=== PATIENT | female | born 1995 | race Caucasian/White ===

== ENCOUNTER → 2017-03-29 | Outpatient (REF) | payer OTHER ==
[2017-03-29 13:11] LABS: MEAN CORPUSCULAR HEMOGLOBIN 28.9 pg (27.0-33.0); MEAN CORPUSCULAR HGB CONC 33.5 g/dl (32.0-36.5); MEAN CORPUSCULAR VOLUME 86.1 fl (80.0-96.0); PLATELET COUNT, AUTOMATED 260 10^3/uL (150-450); RED CELL DISTRIBUTION WIDTH 12.1 % (11.5-14.5)
[2017-03-29 14:10] LABS: HCG, SERUM QUANTITATIVE 31320 MIU/ML
[2017-04-02 12:00] LABS: WHITE BLOOD COUNT 8.2 10^3/uL (4.0-10.0)
== END ==
LOC: M LAB REF 12:55
PROVIDERS: ATTEND Advanced Practice Midwife
DX: O36.80X0 Pregnancy with inconclusive fetal viability, not applicable or unspecified (principal); Z3A.00 Weeks of gestation of pregnancy not specified

== ENCOUNTER → 2017-05-03 | Outpatient (REF) | payer MEDICAID | LOC: M LAB REF 13:24 | DX: Z34.01 Encounter for supervision of normal first pregnancy, first trimester (principal); Z3A.11 11 weeks gestation of pregnancy; R30.0 Dysuria ==

== ENCOUNTER → 2017-05-24 | Outpatient (REF) | payer MEDICAID | LOC: M LAB REF 13:12 | DX: Z34.01 Encounter for supervision of normal first pregnancy, first trimester (principal) ==

== ENCOUNTER 2017-08-10 10:11 | Emergency (ER) | payer OTHER, MEDICAID ==
[2017-08-10] MEDS: NS 1,000 ML IV (10:52)
[2017-08-10] MEDS: METOCLOPRAMIDE INJ 10MG/2ML VIAL (J2765) IV (10:52)
[2017-08-10 10:59] LABS: BASO % 0.2 % (0.0-1.0); EOS % 0.1 % (0.0-3.0); HEMATOCRIT 31.4 % (36.0-47.0); HEMOGLOBIN 10.8 g/dl (12.0-15.5); IMMATURE GRANULOCYTE % 1.2 % (0-3.0); LYMPH # 1.4 10^3/uL (1.5-6.5); MEAN CORPUSCULAR HEMOGLOBIN 29.9 pg (27.0-33.0); MEAN CORPUSCULAR HGB CONC 34.4 g/dl (32.0-36.5); MONO # 1.5 10^3/uL (0.0-0.8); MONO % 11.5 % (0.0-5.0); NEUTROPHILS # 9.9 10^3/uL (1.8-7.7); PLATELET COUNT, AUTOMATED 220 10^3/uL (150-450); RED BLOOD COUNT 3.61 10^6/uL (4.00-5.40); RED CELL DISTRIBUTION WIDTH 11.8 % (11.5-14.5)
[2017-08-10 11:03] LABS: AMORPHOUS SEDIMENT RFX SMALL (NEGATIVE); KETONE, URINE AUTO RFX NEGATIVE (NEGATIVE); MUCUS, URINE RFX SMALL (NEGATIVE); NITRITE, URINE AUTO RFX NEGATIVE (NEGATIVE); RBC, URINE AUTO RFX 5 /HPF (0-3); SPECIFIC GRAVITY UR AUTO RFX 1.011 (1.002-1.035); SQUAM EPITHELIAL CELL UR AURFX 3 /HPF (0-6); WBC, URINE AUTO RFX 6 /HPF (0-3)
[2017-08-10 11:12] LABS: LEUKOCYTE ESTERASE UR AUTO RFX TRACE (NEGATIVE)
[2017-08-10 11:26] LABS: ALBUMIN 3.1 GM/DL (3.2-5.2); ALBUMIN/GLOBULIN RATIO 0.67 (1.00-1.93); ALKALINE PHOSPHATASE 109 U/L (45-117); ALT/SGPT 22 U/L (12-78); ANION GAP 7 MEQ/L (8-16); AST/SGOT 19 U/L (7-37); BILIRUBIN,TOTAL 0.8 MG/DL (0.2-1.0); BLOOD UREA NITROGEN 7 MG/DL (7-18); CALCIUM LEVEL 8.4 MG/DL (8.5-10.1); CARBON DIOXIDE LEVEL 25 MEQ/L (21-32); CHLORIDE LEVEL 104 MEQ/L (98-107); CREATININE FOR GFR 0.59 MG/DL (0.55-1.30); GLUCOSE, FASTING 79 MG/DL (70-100); POTASSIUM SERUM 3.5 MEQ/L (3.5-5.1); SODIUM LEVEL 136 MEQ/L (136-145); TOTAL PROTEIN 7.7 GM/DL (6.4-8.2)
[2017-08-10] MEDS: ACETAMINOPHEN TAB 650MG DOSE (2X325MG) PO (12:56)
[2017-08-10] MEDS: NITROFURANTOIN (MACROBID) 100 MG CAP PO (12:56)
== END 2017-08-10 12:58 | disposition home or self-care (01) ==
LOC: M ED 10:11
DX: O23.42 Unspecified infection of urinary tract in pregnancy, second trimester (principal); O26.892 Other specified pregnancy related conditions, second trimester; M54.5 Low back pain; O21.9 Vomiting of pregnancy, unspecified; Z3A.26 26 weeks gestation of pregnancy
CPT/HCPCS: J2765

== ENCOUNTER → 2017-08-23 | Outpatient (CLI) | payer OTHER ==
[2017-08-23 13:25] LABS: HEMATOCRIT 31.2 % (36.0-47.0); HEMOGLOBIN 10.4 g/dl (12.0-15.5); MEAN CORPUSCULAR HGB CONC 33.3 g/dl (32.0-36.5); MEAN CORPUSCULAR VOLUME 86.9 fl (80.0-96.0); PLATELET COUNT, AUTOMATED 323 10^3/uL (150-450); RED BLOOD COUNT 3.59 10^6/uL (4.00-5.40); RED CELL DISTRIBUTION WIDTH 11.6 % (11.5-14.5); WHITE BLOOD COUNT 11.8 10^3/uL (4.0-10.0)
[2017-08-23 13:37] LABS: GLUCOSE CHALLENGE TEST 1 HOUR 84 MG/DL (LESS THAN 140)
== END ==
LOC: M LAB 11:37
DX: Z34.82 Encounter for supervision of other normal pregnancy, second trimester (principal)
CPT/HCPCS: 82950

== ENCOUNTER 2017-09-01 22:49 | Emergency (ER) | payer OTHER ==
[2017-09-01 23:31] LABS: KETONE, URINE AUTO RFX NEGATIVE (NEGATIVE); LEUKOCYTE ESTERASE UR AUTO RFX 2+ (NEGATIVE); MUCUS, URINE RFX SMALL (NEGATIVE); NITRITE, URINE AUTO RFX NEGATIVE (NEGATIVE); RBC, URINE AUTO RFX 2 /HPF (0-3); SPECIFIC GRAVITY UR AUTO RFX 1.003 (1.002-1.035); SQUAM EPITHELIAL CELL UR AURFX 1 /HPF (0-6); WBC, URINE AUTO RFX 10 /HPF (0-3)
[2017-09-02] MEDS: CEPHALEXIN 500 MG CAP PO (01:28)
== END 2017-09-02 01:31 | disposition home or self-care (01) ==
LOC: M ED 22:49
DX: Z04.71 Encounter for examination and observation following alleged adult physical abuse (principal); O23.43 Unspecified infection of urinary tract in pregnancy, third trimester; Z3A.29 29 weeks gestation of pregnancy; Z79.899 Other long term (current) drug therapy; Z79.2 Long term (current) use of antibiotics
CPT/HCPCS: 76815

== ENCOUNTER 2017-10-01 18:56 | Emergency (ER) | payer OTHER | END 2017-10-01 19:55 | disposition admitted as inpatient to this hospital (09) | LOC: M ED 18:56 | DX: O26.893 Other specified pregnancy related conditions, third trimester (principal); R10.9 Unspecified abdominal pain; R50.9 Fever, unspecified; R05 Cough; R11.2 Nausea with vomiting, unspecified; Z3A.34 34 weeks gestation of pregnancy; Z87.440 Personal history of urinary (tract) infections | CPT/HCPCS: 99282 ==

== ENCOUNTER 2017-10-01 20:00 | Inpatient (IN) | payer OTHER ==
[2017-10-01] MEDS: LR 1,000 ML IV ×2 (20:30)
[2017-10-01 21:09] LABS: BASO % 0.1 % (0.0-1.0); EOS % 0.1 % (0.0-3.0); HEMATOCRIT 30.9 % (36.0-47.0); HEMOGLOBIN 10.3 g/dl (12.0-15.5); IMMATURE GRANULOCYTE % 1.5 % (0-3.0); LYMPH # 1.4 10^3/uL (1.5-6.5); LYMPH % 8.4 % (24.0-44.0); MEAN CORPUSCULAR HEMOGLOBIN 26.6 pg (27.0-33.0); MEAN CORPUSCULAR HGB CONC 33.3 g/dl (32.0-36.5); MEAN CORPUSCULAR VOLUME 79.8 fl (80.0-96.0); MONO # 1.4 10^3/uL (0.0-0.8); MONO % 8.4 % (0.0-5.0); NEUTROPHILS # 13.3 10^3/uL (1.8-7.7); NEUTROPHILS % 81.5 % (36.0-66.0); PLATELET COUNT, AUTOMATED 388 10^3/uL (150-450); RED BLOOD COUNT 3.87 10^6/uL (4.00-5.40); RED CELL DISTRIBUTION WIDTH 12.4 % (11.5-14.5); WHITE BLOOD COUNT 16.4 10^3/uL (4.0-10.0)
[2017-10-01 21:14] LABS: APPEARANCE, URINE HAZY (CLEAR); BACTERIA, URINE AUTO 1+ (NEGATIVE); BILIRUBIN, URINE AUTO NEGATIVE (NEGATIVE); BLOOD, URINE BLOOD NEGATIVE (NEGATIVE); COLOR, URINE YELLOW (YELLOW); GLUCOSE, URINE (UA) AUTO NEGATIVE (NEGATIVE); KETONE, URINE AUTO NEGATIVE (NEGATIVE); LEUKOCYTE ESTERASE, URINE AUTO 3+ (NEGATIVE); NITRITE, URINE AUTO NEGATIVE (NEGATIVE); PROTEIN, URINE AUTO NEGATIVE (NEGATIVE); RBC, URINE AUTO 1 /HPF (0-3); SPECIFIC GRAVITY URINE AUTO 1.005 (1.002-1.035); SQUAMOUS EPITHELIAL CELL UR AU 2 /HPF (0-6); WBC, URINE AUTO 15 /HPF (0-3)
[2017-10-01 21:36] LABS: ALBUMIN 2.1 GM/DL (3.2-5.2); ALBUMIN/GLOBULIN RATIO 0.43 (1.00-1.93); ALKALINE PHOSPHATASE 223 U/L (45-117); ALT/SGPT 26 U/L (12-78); ANION GAP 11 MEQ/L (8-16); AST/SGOT 27 U/L (7-37); BILIRUBIN,TOTAL 0.8 MG/DL (0.2-1.0); BLOOD UREA NITROGEN 5 MG/DL (7-18); CALCIUM LEVEL 7.9 MG/DL (8.5-10.1); CARBON DIOXIDE LEVEL 23 MEQ/L (21-32); CHLORIDE LEVEL 100 MEQ/L (98-107); CREATININE FOR GFR 0.67 MG/DL (0.55-1.30); GLOMERULAR FILTRATION RATE > 60.0 (>60); GLUCOSE, FASTING 70 MG/DL (70-100); POTASSIUM SERUM 3.8 MEQ/L (3.5-5.1); SODIUM LEVEL 134 MEQ/L (136-145)
[2017-10-01] MEDS: ACETAMINOPHEN 500 MG TAB PO (22:55)
[2017-10-01] MEDS: cefTRIAXone SOD 1 GM in D5W MINI-BAG PLUS 50 ML IV (22:55)
[2017-10-01 23:10] LABS: INFLUENZA A AMPLIFICATION NEGATIVE (NEGATIVE); INFLUENZA B AMPLIFICATION NEGATIVE (NEGATIVE)
[2017-10-02] MEDS: LR 1,000 ML IV ×3 (04:30→20:30)
[2017-10-02] MEDS: TERBUTALINE SULFATE 1 MG/ML VIAL (J3105) SC (06:45)
[2017-10-02 07:09] LABS: BASO % 0.2 % (0.0-1.0); EOS % 0.1 % (0.0-3.0); HEMATOCRIT 30.6 % (36.0-47.0); IMMATURE GRANULOCYTE % 1.5 % (0-3.0); LYMPH # 1.4 10^3/uL (1.5-6.5); LYMPH % 7.7 % (24.0-44.0); MEAN CORPUSCULAR HEMOGLOBIN 26.3 pg (27.0-33.0); MEAN CORPUSCULAR HGB CONC 32.7 g/dl (32.0-36.5); MEAN CORPUSCULAR VOLUME 80.5 fl (80.0-96.0); MONO # 1.5 10^3/uL (0.0-0.8); MONO % 8.5 % (0.0-5.0); NEUTROPHILS # 14.5 10^3/uL (1.8-7.7); PLATELET COUNT, AUTOMATED 329 10^3/uL (150-450); RED CELL DISTRIBUTION WIDTH 12.4 % (11.5-14.5); WHITE BLOOD COUNT 17.6 10^3/uL (4.0-10.0)
[2017-10-02] MEDS: ONDANSETRON 4MG/2ML VIAL (J2405) IV (08:32)
[2017-10-02] MEDS: ACETAMINOPHEN 500 MG TAB PO ×2 (08:59→20:49)
[2017-10-02] MEDS: cefTRIAXone SOD 1 GM in D5W MINI-BAG PLUS 50 ML IV (10:10)
[2017-10-03 08:31] LABS: BASO % 0.3 % (0.0-1.0); EOS # 0.1 10^3/uL (0.0-0.50); EOS % 1.1 % (0.0-3.0); HEMATOCRIT 28.2 % (36.0-47.0); HEMOGLOBIN 9.2 g/dl (12.0-15.5); IMMATURE GRANULOCYTE % 1.5 % (0-3.0); LYMPH # 1.7 10^3/uL (1.5-6.5); LYMPH % 14.5 % (24.0-44.0); MEAN CORPUSCULAR HEMOGLOBIN 26.4 pg (27.0-33.0); MEAN CORPUSCULAR HGB CONC 32.6 g/dl (32.0-36.5); MEAN CORPUSCULAR VOLUME 80.8 fl (80.0-96.0); MONO # 0.7 10^3/uL (0.0-0.8); MONO % 5.5 % (0.0-5.0); NEUTROPHILS # 9.1 10^3/uL (1.8-7.7); NEUTROPHILS % 77.1 % (36.0-66.0); PLATELET COUNT, AUTOMATED 327 10^3/uL (150-450); RED BLOOD COUNT 3.49 10^6/uL (4.00-5.40); RED CELL DISTRIBUTION WIDTH 12.6 % (11.5-14.5); WHITE BLOOD COUNT 11.8 10^3/uL (4.0-10.0)
[2017-10-03 09:14] LABS: CONTROL LINE MONO INT CTR LINE PRESENT; MONO SCRN NEGATIVE (NEGATIVE)
[2017-10-03] MEDS: LR 1,000 ML IV ×2 (10:11→17:42)
[2017-10-03] MEDS: cefTRIAXone SOD 1 GM in D5W MINI-BAG PLUS 50 ML IV (10:11)
[2017-10-04 07:37] LABS: BASO % 0.1 % (0.0-1.0); EOS # 0.1 10^3/uL (0.0-0.50); EOS % 1.2 % (0.0-3.0); HEMATOCRIT 27.3 % (36.0-47.0); HEMOGLOBIN 8.8 g/dl (12.0-15.5); IMMATURE GRANULOCYTE % 1.9 % (0-3.0); LYMPH % 20.4 % (24.0-44.0); MEAN CORPUSCULAR HEMOGLOBIN 25.8 pg (27.0-33.0); MEAN CORPUSCULAR HGB CONC 32.2 g/dl (32.0-36.5); MEAN CORPUSCULAR VOLUME 80.1 fl (80.0-96.0); MONO # 0.6 10^3/uL (0.0-0.8); MONO % 6.5 % (0.0-5.0); NEUTROPHILS # 6.7 10^3/uL (1.8-7.7); NEUTROPHILS % 69.9 % (36.0-66.0); PLATELET COUNT, AUTOMATED 332 10^3/uL (150-450); RED BLOOD COUNT 3.41 10^6/uL (4.00-5.40); RED CELL DISTRIBUTION WIDTH 12.6 % (11.5-14.5); WHITE BLOOD COUNT 9.6 10^3/uL (4.0-10.0)
[2017-10-04 07:55] LABS: ANION GAP 7 MEQ/L (8-16); BLOOD UREA NITROGEN 5 MG/DL (7-18); CALCIUM LEVEL 7.9 MG/DL (8.5-10.1); CARBON DIOXIDE LEVEL 27 MEQ/L (21-32); CHLORIDE LEVEL 110 MEQ/L (98-107); CREATININE FOR GFR 0.45 MG/DL (0.55-1.30); GLOMERULAR FILTRATION RATE > 60.0 (>60); GLUCOSE, FASTING 77 MG/DL (70-100); POTASSIUM SERUM 3.9 MEQ/L (3.5-5.1); SODIUM LEVEL 144 MEQ/L (136-145)
[2017-10-04] MEDS: ERYTHROMYCIN 250 MG TABLET PO (08:22)
[2017-10-04] MEDS: LR 1,000 ML IV (08:23)
== END 2017-10-04 11:01 | disposition home or self-care (01) | DRG 566 ==
LOC: M LDO 20:00 → M LDI 10-03 08:07
DX: O99.513 Diseases of the respiratory system complicating pregnancy, third trimester (principal); B95.7 Other staphylococcus as the cause of diseases classified elsewhere; Z87.440 Personal history of urinary (tract) infections; Z3A.33 33 weeks gestation of pregnancy; J06.9 Acute upper respiratory infection, unspecified; O23.43 Unspecified infection of urinary tract in pregnancy, third trimester

== ENCOUNTER → 2017-10-24 | Outpatient (REF) | payer OTHER | LOC: M LAB REF 13:01 | DX: Z23 Encounter for immunization (principal) | CPT/HCPCS: 87081 ==

== ENCOUNTER 2017-11-15 19:59 | Outpatient (CLI) | payer OTHER | END 2017-11-15 22:50 | disposition home or self-care (01) | LOC: M LDO 19:59 | DX: O47.1 False labor at or after 37 completed weeks of gestation (principal); Z3A.39 39 weeks gestation of pregnancy | CPT/HCPCS: 59025 ==

== ENCOUNTER 2017-11-19 12:45 | Inpatient (IN) | payer OTHER ==
[2017-11-19 13:56] LABS: HEMATOCRIT 29.9 % (36.0-47.0); HEMOGLOBIN 9.6 g/dl (12.0-15.5); MEAN CORPUSCULAR HEMOGLOBIN 24.1 pg (27.0-33.0); MEAN CORPUSCULAR HGB CONC 32.1 g/dl (32.0-36.5); MEAN CORPUSCULAR VOLUME 75.1 fl (80.0-96.0); PLATELET COUNT, AUTOMATED 232 10^3/uL (150-450); RED BLOOD COUNT 3.98 10^6/uL (4.00-5.40); RED CELL DISTRIBUTION WIDTH 14.7 % (11.5-14.5); WHITE BLOOD COUNT 11.1 10^3/uL (4.0-10.0)
[2017-11-19 14:16] LABS: ALT/SGPT 16 U/L (12-78); AST/SGOT 21 U/L (7-37); BILIRUBIN,TOTAL 0.4 MG/DL (0.2-1.0); CREATININE FOR GFR 0.84 MG/DL (0.55-1.30); GLOMERULAR FILTRATION RATE > 60.0 (>60); LDH LACTATE DEHYDROGENASE 206 U/L (84-246); URIC ACID 6.4 MG/DL (2.6-6.0)
[2017-11-19] MEDS ORDERED: FENTANYL 2MCG/ML ROPIVACAINE 0.2% IN 0.9% NACL 200ML IVBAG As Ordered (14:26)
[2017-11-19] MEDS ORDERED: ePHEDrine SULFATE 25 MG/5 ML(5MG/ML) SYRINGE IV (15:30)
[2017-11-19] MEDS ORDERED: NALOXONE INJ 0.4 MG/1 ML VIAL (J2310) IV (15:30)
[2017-11-19] MEDS ORDERED: REFRIGERATOR IV KEYS XX (15:30)
[2017-11-19] MEDS: FENTANYL/ROPIVACAINE/NACL BAG 200 ML EPIDURAL (15:30)
[2017-11-19] MEDS ORDERED: EPIDURAL/PCA KEYS XX (15:30)
[2017-11-19] MEDS ORDERED: ONDANSETRON 4MG/2ML VIAL (J2405) IV (15:30)
[2017-11-19] MEDS ORDERED: EPIDURAL COMMENT XX (15:30)
[2017-11-19] MEDS ORDERED: diphenhydrAMINE INJ 50MG/ML VIAL (J1200) IV (15:30)
[2017-11-19] MEDS ORDERED: LACTATED RINGER'S 1000 ML IV (15:30)
[2017-11-19 18:09] LABS: TOTAL PROTEIN,RANDOM URINE 30.7 MG/DL (0.0-12.0)
[2017-11-19 18:09] LABS: CREATININE,RANDOM URINE 31.5 MG/DL
[2017-11-19] MEDS: ACETAMINOPHEN 500 MG TAB PO (21:52)
[2017-11-19] MEDS: OXYTOCIN DRIP 30 UNITS in APPROPRIATE DILUENT 1 EA IV (22:02)
[2017-11-20 00:20] LABS: HEMATOCRIT 30.3 % (36.0-47.0); HEMOGLOBIN 9.8 g/dl (12.0-15.5); MEAN CORPUSCULAR HEMOGLOBIN 24.4 pg (27.0-33.0); MEAN CORPUSCULAR HGB CONC 32.3 g/dl (32.0-36.5); MEAN CORPUSCULAR VOLUME 75.6 fl (80.0-96.0); PLATELET COUNT, AUTOMATED 198 10^3/uL (150-450); RED BLOOD COUNT 4.01 10^6/uL (4.00-5.40); WHITE BLOOD COUNT 15.3 10^3/uL (4.0-10.0)
[2017-11-20] MEDS: ceFAZolin SOD 1 GM in D5W MINI-BAG PLUS 50 ML IV (00:30)
[2017-11-20] MEDS: BICITRA 30ML SOLN UDC PO (00:30)
[2017-11-20] MEDS ORDERED: OXYTOCIN INJ 10 UNITS/ML VIAL (J2590) As Ordered ×6 (00:31→01:51)
[2017-11-20] MEDS ORDERED: LIDOCAINE 2% W/EPIN INJ 20ML **PRES FREE As Ordered (00:35)
[2017-11-20] MEDS ORDERED: MORPHINE PRES-FREE INJ 10 MG/10 ML VIAL (J2274) As Ordered (01:16)
[2017-11-20] MEDS ORDERED: ONDANSETRON 4MG/2ML VIAL (J2405) As Ordered (01:18)
[2017-11-20] MEDS ORDERED: dexameTHASONE 4 MG/ML 1ML VIAL (J1100) As Ordered (01:18)
[2017-11-20] MEDS ORDERED: KETOROLAC 60 MG/2 ML VIAL (J1885) As Ordered (01:18)
[2017-11-20 01:36] LABS: CORD GAS ABE A -6.7; CORD GAS HCO3 A 22.5 MEQ/L; CORD GAS PCO2 A 59.4 mmHg; CORD GAS PH A 7.197 UNITS; CORD GAS SBC A 17.7 MEQ/L; CORD GAS TCO2 A 24.4 MEQ/L
[2017-11-20 01:37] LABS: CORD GAS ABE V -5.7; CORD GAS HCO3 V 19.1 MEQ/L; CORD GAS O2 SAT V 55.5 %; CORD GAS PCO2 V 35.8 mmHg; CORD GAS PH V 7.345 UNITS; CORD GAS PO2 V 24.3 mmHg; CORD GAS SBC V 18.8 MEQ/L; CORD GAS TCO2 V 20.2 MEQ/L
[2017-11-20] MEDS ORDERED: NALBUPHINE HCL 10 MG/ML AMP (J2300) IV ×2 (01:40→02:15)
[2017-11-20] MEDS ORDERED: NALOXONE INJ 0.4 MG/1 ML VIAL (J2310) IV ×2 (01:40)
[2017-11-20] MEDS ORDERED: METOCLOPRAMIDE INJ 10MG/2ML VIAL (J2765) IV (01:40)
[2017-11-20] MEDS ORDERED: ONDANSETRON 4MG/2ML VIAL (J2405) IV ×2 (01:40→02:15)
[2017-11-20] MEDS: LR 1,000 ML IV ×3 (01:46→17:46)
[2017-11-20] MEDS ORDERED: fentaNYL 100 MCG/2 ML INJECTION (J3010) IV (02:15)
[2017-11-20] MEDS ORDERED: HYDROMORPHONE HCL 0.5 MG/ 0.5 ML SYRINGE (J1170 PER 1) IV (02:15)
[2017-11-20] MEDS ORDERED: MEPERIDINE INJ 25 MG/ML VIAL (J2175) IV (02:15)
[2017-11-20] MEDS ORDERED: PERCOCET 5MG/325MG TAB PO (02:15)
[2017-11-20] MEDS: PERCOCET 5MG/325MG TAB PO ×4 (04:59→22:35)
[2017-11-20 07:23] LABS: ALT/SGPT 12 U/L (12-78); AST/SGOT 20 U/L (7-37); BILIRUBIN,TOTAL 0.5 MG/DL (0.2-1.0); CREATININE FOR GFR 1.03 MG/DL (0.55-1.30); GLOMERULAR FILTRATION RATE > 60.0 (>60); LDH LACTATE DEHYDROGENASE 233 U/L (84-246); URIC ACID 6.1 MG/DL (2.6-6.0)
[2017-11-20] MEDS: RHOGAM 300 MCG (1500 IU) INJ (J2790) IM (07:27)
[2017-11-20] MEDS: MEASLES,MUMPS,RUBELLA VACCINE INJ (MMR-II) (90707) SC (07:27)
[2017-11-20] MEDS: IBUPROFEN 800 MG TAB PO ×2 (08:41→17:35)
[2017-11-20] MEDS: PRENATAL VITAMINS CHEWABLE TABLET PO (09:00)
[2017-11-21] MEDS: IBUPROFEN 800 MG TAB PO ×3 (01:45→17:49)
[2017-11-21] MEDS: PERCOCET 5MG/325MG TAB PO ×5 (02:35→22:01)
[2017-11-21 06:51] LABS: HEMATOCRIT 21.6 % (36.0-47.0); MEAN CORPUSCULAR HGB CONC 31.5 g/dl (32.0-36.5); MEAN CORPUSCULAR VOLUME 76.3 fl (80.0-96.0); PLATELET COUNT, AUTOMATED 179 10^3/uL (150-450); RED BLOOD COUNT 2.83 10^6/uL (4.00-5.40); RED CELL DISTRIBUTION WIDTH 15.3 % (11.5-14.5); WHITE BLOOD COUNT 13.8 10^3/uL (4.0-10.0)
[2017-11-21 07:07] LABS: HEMOGLOBIN 6.8 g/dl (12.0-15.5)
[2017-11-21] MEDS: PRENATAL VITAMINS CHEWABLE TABLET PO (08:36)
[2017-11-21] MEDS ORDERED: OXYTOCIN 30 UNITS IN 0.9% NaCl 500ML IV BAG (J2590) As Ordered (21:24)
[2017-11-22] MEDS: IBUPROFEN 800 MG TAB PO ×2 (01:08→08:06)
[2017-11-22] MEDS: PERCOCET 5MG/325MG TAB PO (05:38)
[2017-11-22 07:10] LABS: HEMATOCRIT 21.4 % (36.0-47.0); MEAN CORPUSCULAR HEMOGLOBIN 24.6 pg (27.0-33.0); MEAN CORPUSCULAR HGB CONC 32.2 g/dl (32.0-36.5); MEAN CORPUSCULAR VOLUME 76.2 fl (80.0-96.0); PLATELET COUNT, AUTOMATED 211 10^3/uL (150-450); RED BLOOD COUNT 2.81 10^6/uL (4.00-5.40); RED CELL DISTRIBUTION WIDTH 15.5 % (11.5-14.5); WHITE BLOOD COUNT 14.4 10^3/uL (4.0-10.0)
[2017-11-22 07:16] LABS: HEMOGLOBIN 6.9 g/dl (12.0-15.5)
[2017-11-22 07:17] LABS: ALT/SGPT 12 U/L (12-78); AST/SGOT 18 U/L (7-37); BILIRUBIN,TOTAL 0.3 MG/DL (0.2-1.0); CREATININE FOR GFR 0.68 MG/DL (0.55-1.30); GLOMERULAR FILTRATION RATE > 60.0 (>60); LDH LACTATE DEHYDROGENASE 197 U/L (84-246); URIC ACID 5.1 MG/DL (2.6-6.0)
[2017-11-22] MEDS: PRENATAL VITAMINS CHEWABLE TABLET PO (08:06)
== END 2017-11-22 10:05 | disposition home or self-care (01) | DRG 540 ==
LOC: M LDI 12:45 → M OBS 11-20 03:17
PROC: 10D00Z1 Extraction of Products of Conception, Low, Open Approach (ICD-10-PCS; principal; 2017-11-19 01:00)
DX: O14.94 Unspecified pre-eclampsia, complicating childbirth (principal); Z3A.39 39 weeks gestation of pregnancy; O99.02 Anemia complicating childbirth; D64.9 Anemia, unspecified; O62.0 Primary inadequate contractions; Z37.0 Single live birth

== ENCOUNTER 2018-01-05 12:51 | Emergency (ER) | payer OTHER ==
[2018-01-05 13:33] LABS: KETONE, URINE AUTO RFX NEGATIVE (NEGATIVE); LEUKOCYTE ESTERASE UR AUTO RFX 2+ (NEGATIVE); MUCUS, URINE RFX SMALL (NEGATIVE); NITRITE, URINE AUTO RFX POSITIVE (NEGATIVE); RBC, URINE AUTO RFX 7 /HPF (0-3); SPECIFIC GRAVITY UR AUTO RFX 1.013 (1.002-1.035); SQUAM EPITHELIAL CELL UR AURFX 1 /HPF (0-6); WBC, URINE AUTO RFX TNTC /HPF (0-3)
== END 2018-01-05 14:19 | disposition home or self-care (01) ==
LOC: M ED 12:51
DX: N39.0 Urinary tract infection, site not specified (principal)
CPT/HCPCS: 81001

== ENCOUNTER → 2018-07-31 | Outpatient (REF) | payer OTHER, MEDICAID ==
[~2018-07-31] MED LIST: CIPR-249 PO; ERYT-52 PO; FERR325T3 PO; FLOM0.4C39 PO; IBUP80TA PO; KEFL500C17 PO; MACR100C43 PO; MULTCAP8 PO; PERC5TAB12 PO; PERCOCET PO; PRENTAB9 PO; PYRI1TAB5 PO; REGL10TA6 PO
[2018-07-31 13:11] LABS: HCG, SERUM QUANTITATIVE 172916 MIU/ML
[2018-07-31 13:29] LABS: HEMATOCRIT 32.6 % (36.0-47.0); HEMOGLOBIN 9.7 g/dl (12.0-15.5); MEAN CORPUSCULAR HEMOGLOBIN 20.9 pg (27.0-33.0); MEAN CORPUSCULAR HGB CONC 29.8 g/dl (32.0-36.5); MEAN CORPUSCULAR VOLUME 70.3 fl (80.0-96.0); PLATELET COUNT, AUTOMATED 337 10^3/uL (150-450); RED BLOOD COUNT 4.64 10^6/uL (4.00-5.40); WHITE BLOOD COUNT 6.4 10^3/uL (4.0-10.0)
[2018-08-01 10:23] LABS: RUBELLA IgG QUALITATIVE IMMUNE (IMMUNE)
[2018-08-01 10:54] LABS: HIV 1&2 SCREEN CENTAUR NEGATIVE (NEGATIVE)
== END ==
LOC: M LAB REF 12:12
PROVIDERS: ATTEND Obstetrics & Gynecology
DX: Z32.01 Encounter for pregnancy test, result positive (principal); O36.80X0 Pregnancy with inconclusive fetal viability, not applicable or unspecified; Z3A.00 Weeks of gestation of pregnancy not specified

== ENCOUNTER 2018-09-07 20:00 | Emergency (ER) | payer MEDICAID, OTHER ==
[~2018-09-07] VITALS: Ht 154.9 cm; Wt 54.5 kg
[2018-09-07] MEDS ORDERED: MULTTAB20 PO (20:41)
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
[2018-09-07 23:50] VITALS: BP 94/56
--- NOTE | 2018-09-08 06:41 | ED PDOC ---
Post-Departure Follow-Up dr cho and lawrence gold faxed formal report of ob us for fu Ursula Myles MD Sep 08, 2018 06:41
== END 2018-09-07 23:55 | disposition home or self-care (01) ==
LOC: EEVIPCON 20:00 → M ED 20:00
DX: O26.892 Other specified pregnancy related conditions, second trimester (principal); R10.2 Pelvic and perineal pain; Y04.8XXA Assault by other bodily force, initial encounter; Y92.89 Other specified places as the place of occurrence of the external cause; Z3A.16 16 weeks gestation of pregnancy

== ENCOUNTER → 2018-12-09 | Outpatient (CLI) | payer OTHER ==
[~2018-12-09] MED LIST changes: +MULTTAB20 PO
[2018-12-09 14:34] LABS: HEMATOCRIT 31.1 % (36.0-47.0); HEMOGLOBIN 9.2 g/dl (12.0-15.5); MEAN CORPUSCULAR HEMOGLOBIN 20.9 pg (27.0-33.0); MEAN CORPUSCULAR HGB CONC 29.6 g/dl (32.0-36.5); MEAN CORPUSCULAR VOLUME 70.5 fl (80.0-96.0); PLATELET COUNT, AUTOMATED 326 10^3/uL (150-450); RED BLOOD COUNT 4.41 10^6/uL (4.00-5.40); WHITE BLOOD COUNT 12.2 10^3/uL (4.0-10.0)
== END ==
LOC: M LAB 12:26
PROVIDERS: ATTEND Nurse Practitioner Women's Health
DX: Z34.82 Encounter for supervision of other normal pregnancy, second trimester (principal); Z36.89 Encounter for other specified antenatal screening

== ENCOUNTER → 2018-12-11 | Outpatient (REF) | payer OTHER ==
[~2018-12-11] MED LIST changes: +GUMMCHW PO; +PEDI1TAB5 PO; +PRIL20TA2 PO; +RANI1TAB38 PO
[2018-12-19 00:06] LABS: HEMOGLOBIN A 98.4 % (96.4-98.8); HEMOGLOBIN A2 1.6 % (1.8-3.2); HGB SOLUBILITY Negative (Negative)
== END ==
LOC: M LAB REF 17:03
PROVIDERS: ATTEND Nurse Practitioner Women's Health
DX: Z34.83 Encounter for supervision of other normal pregnancy, third trimester (principal)

== ENCOUNTER → 2019-02-05 | Outpatient (REF) | payer OTHER ==
[~2019-02-05] MED LIST changes: -GUMMCHW PO; -PEDI1TAB5 PO; -PRIL20TA2 PO; -RANI1TAB38 PO
== END ==
LOC: M LAB REF 12:13
PROVIDERS: ATTEND Obstetrics & Gynecology
DX: Z34.83 Encounter for supervision of other normal pregnancy, third trimester (principal)

== ENCOUNTER 2019-02-24 04:57 | Inpatient (IN) | payer MEDICAID, OTHER ==
[2019-02-24] VITALS (7 sets, daily range): BP systolic 100–111; BP diastolic 56–78
[~2019-02-24] VITALS: Ht 152.4 cm; Wt 63.6 kg
[~2019-02-24 04:57] MED LIST changes: +GUMMCHW PO; +PEDI1TAB5 PO; +PRIL20TA2 PO
[2019-02-24] MEDS ORDERED: LR 1,000 ML IV SCH ×2 (05:24→11:45)
[2019-02-24] MEDS ORDERED: LACTATED RINGER'S 1000 ML IV STA (05:24)
[2019-02-24] MEDS ORDERED: RANI1TAB38 PO (05:28)
[2019-02-24] MEDS ORDERED: ceFAZolin SOD 2 GM in IV 1 EA IV ONE (05:30)
[2019-02-24] MEDS ORDERED: BICITRA 30ML SOLN UDC PO ONE (05:30)
[2019-02-24 05:42] LABS: HEMATOCRIT 30.5 % (36.0-47.0); HEMOGLOBIN 8.6 g/dl (12.0-15.5); MEAN CORPUSCULAR HEMOGLOBIN 18.7 pg (27.0-33.0); MEAN CORPUSCULAR HGB CONC 28.2 g/dl (32.0-36.5); MEAN CORPUSCULAR VOLUME 66.3 fl (80.0-96.0); PLATELET COUNT, AUTOMATED 298 10^3/uL (150-450); WHITE BLOOD COUNT 13.3 10^3/uL (4.0-10.0)
[2019-02-24] MEDS ORDERED: OXYTOCIN INJ 10 UNITS/ML VIAL (J2590) As Ordered ONE (07:22)
[2019-02-24] MEDS ORDERED: dexameTHASONE 4 MG/ML 1ML VIAL (J1100) As Ordered ONE (07:22)
[2019-02-24] MEDS ORDERED: fentaNYL 100 MCG/2 ML INJECTION (J3010) As Ordered ONE (07:23)
[2019-02-24] MEDS ORDERED: ONDANSETRON 4MG/2ML VIAL (J2405) As Ordered ONE ×2 (07:23→11:51)
[2019-02-24] MEDS ORDERED: MORPHINE PRES-FREE INJ 10 MG/10 ML VIAL (J2274) As Ordered ONE (07:23)
[2019-02-24] MEDS ORDERED: KETOROLAC 60 MG/2 ML VIAL (J1885) As Ordered ONE (07:24)
[2019-02-24] MEDS ORDERED: OXYTOCIN DRIP 30 UNITS in IV 1 EA IV SCH (10:02)
[2019-02-24] MEDS ORDERED: IBUPROFEN 600 MG TAB PO PRN (10:15)
[2019-02-24] MEDS ORDERED: MOM 30ML SUSPENSION UDC PO PRN (10:15)
[2019-02-24] MEDS ORDERED: RHOGAM 300 MCG (1500 IU) INJ (J2790) IM SCH (10:15)
[2019-02-24] MEDS ORDERED: ACETAMINOPHEN 500 MG TAB PO PRN (10:15)
[2019-02-24] MEDS ORDERED: PERCOCET 5MG/325MG TAB PO PRN (10:15)
[2019-02-24] MEDS ORDERED: MEASLES,MUMPS,RUBELLA VACCINE INJ (MMR-II) (90707) SC SCH (10:15)
[2019-02-24] MEDS ORDERED: ONDANSETRON 4MG/2ML VIAL (J2405) IV PRN ×2 (10:33→11:45)
[2019-02-24] MEDS ORDERED: NALBUPHINE HCL 10 MG/ML AMP (J2300) IV PRN (10:33)
[2019-02-24] MEDS ORDERED: diphenhydrAMINE INJ 50MG/ML VIAL (J1200) IV PRN (10:33)
[2019-02-24] MEDS ORDERED: METOCLOPRAMIDE INJ 10MG/2ML VIAL (J2765) IV PRN (10:33)
[2019-02-24] MEDS ORDERED: NALOXONE INJ 0.4 MG/1 ML VIAL (J2310) IV PRN ×2 (10:33)
[2019-02-24] MEDS ORDERED: ePHEDrine SULFATE 25 MG/5 ML(5MG/ML) SYRINGE As Ordered ONE (11:08)
[2019-02-24 11:15] LABS: CORD GAS ABE V -2.9; CORD GAS HCO3 V 22.1 MEQ/L; CORD GAS O2 SAT V 66.9 %; CORD GAS PCO2 V 39.3 mmHg; CORD GAS PH V 7.367 UNITS; CORD GAS PO2 V 26.9 mmHg; CORD GAS SBC V 21.2 MEQ/L; CORD GAS TCO2 V 23.3 MEQ/L
[2019-02-24 11:18] LABS: CORD GAS ABE A -2.1; CORD GAS HCO3 A 24.6 MEQ/L; CORD GAS O2 SAT A 25.9 %; CORD GAS PCO2 A 48.9 mmHg; CORD GAS PH A 7.32 UNITS; CORD GAS PO2 A 14.2 mmHg; CORD GAS SBC A 20.8 MEQ/L; CORD GAS TCO2 A 26.1 MEQ/L
[2019-02-24] MEDS ORDERED: fentaNYL 100 MCG/2 ML INJECTION (J3010) IV PRN (11:45)
[2019-02-24] MEDS ORDERED: KETOROLAC 30 MG/ML VIAL (J1885) IV PRN (11:45)
[2019-02-24] MEDS: DOCUSATE SODIUM 100 MG CAP PO SCH (20:35)
[2019-02-25] VITALS (12 sets, daily range): BP systolic 92–114; BP diastolic 54–60
[2019-02-25 06:48] LABS: HEMATOCRIT 23.9 % (36.0-47.0); MEAN CORPUSCULAR HEMOGLOBIN 18.3 pg (27.0-33.0); MEAN CORPUSCULAR HGB CONC 27.2 g/dl (32.0-36.5); MEAN CORPUSCULAR VOLUME 67.3 fl (80.0-96.0); PLATELET COUNT, AUTOMATED 264 10^3/uL (150-450); RED BLOOD COUNT 3.55 10^6/uL (4.00-5.40); WHITE BLOOD COUNT 17.2 10^3/uL (4.0-10.0)
[2019-02-25 06:57] LABS: HEMOGLOBIN 6.5 g/dl (12.0-15.5)
--- NOTE | 2019-02-25 07:38 | RO ---
DATE OF PROCEDURE: 02/24/2019 Xenia is a 23-year-old female 2, para 1-0-0-1 with history of prior section who is being admitted at term for elective repeat section. PREOPERATIVE DIAGNOSES: 1. Term for elective repeat section. 2. Prior section. POSTOPERATIVE DIAGNOSES 1. Term for elective repeat section. 2. Prior section. PROCEDURE: 1. Repeat section. 2. Revision of old scar. ANESTHESIA: Spinal. SURGEON: Dr. Joey Romo. LIQUOR BRIDGE OPERATOR HELPER: Dr. Ricci Sandoval COMPLICATIONS: None. ESTIMATED BLOOD LOSS: 500 mL. FINDINGS: Live female infant in occiput transverse position. 9 and 9, weight 7 pounds 5 ounces. Placenta removed manually. The bilateral tubes and ovaries are within normal limits. DESCRIPTION OF PROCEDURE: After obtaining informed consent the patient was taken to the operating room where spinal anesthetic was found to be adequate. She was then draped and prepped in the usual sterile fashion in the supine position. At this point, an elliptical incision was made over the old scar. With the help of Dr. Sandoval the old scar was removed. The incision was carried down to the fascia. Fascia was incised in midline fashion and carried through laterally. Superior aspect of the fascia then grasped with two Jamshid clamps, tented off and dissected off the rectus muscles sharply. The inferior aspect was dissected off in similar fashion. Rectus muscles midline fashion. Perineum identified. Perineal cavity entered bluntly. Superior and inferior dissection of the peritoneum was then done with good visualization of the bladder at this point a Mobius skin retractor was placed. A low-transverse uterine incision was made. was delivered in atraumatic fashion. Nose and mouth bulb suctioned. Cord doubly clamped and cut and was handed over to the waiting warmer. Cord blood and cord gas were sent. Placenta removed manually. Uterus cleared of all clot and debris and the uterine incision was then repaired in two separate layers of 0 Vicryl sutures. Pelvis copiously irrigated with normal saline and suctioned out. All superficial bleeders coagulated and the peritoneum was closed in a running fashion using #2-0 Vicryl. Fascia closed in two separate segment of 0 Vicryl sutures and the skin was then reapproximated in a subcuticular fashion using #3-0 Vicryl on a Myke. Steri-Strips placed. The patient tolerated procedure well. She was then transferred to recovery room in stable condition. [facility] Services thank you
[2019-02-25] MEDS: IBUPROFEN 800 MG TAB PO PRN ×2 (08:13→15:41)
[2019-02-25] MEDS: PRENATAL VITAMINS CHEWABLE TABLET PO SCH (10:19)
[2019-02-25] MEDS: DOCUSATE SODIUM 100 MG CAP PO SCH ×2 (10:19→21:53)
[2019-02-25 12:19] LABS: MEAN CORPUSCULAR HEMOGLOBIN 18.7 pg (27.0-33.0); MEAN CORPUSCULAR HGB CONC 27.8 g/dl (32.0-36.5); MEAN CORPUSCULAR VOLUME 67.3 fl (80.0-96.0); PLATELET COUNT, AUTOMATED 245 10^3/uL (150-450); RED BLOOD COUNT 3.42 10^6/uL (4.00-5.40); WHITE BLOOD COUNT 15.2 10^3/uL (4.0-10.0)
[2019-02-25 12:26] LABS: HEMOGLOBIN 6.4 g/dl (12.0-15.5)
[2019-02-26 06:04] VITALS: BP 106/58
[2019-02-26 07:22] LABS: HEMATOCRIT 26.9 % (36.0-47.0); MEAN CORPUSCULAR HGB CONC 29.7 g/dl (32.0-36.5); MEAN CORPUSCULAR VOLUME 70.6 fl (80.0-96.0); PLATELET COUNT, AUTOMATED 229 10^3/uL (150-450); RED BLOOD COUNT 3.81 10^6/uL (4.00-5.40); WHITE BLOOD COUNT 13.8 10^3/uL (4.0-10.0)
[2019-02-26] MEDS: PRENATAL VITAMINS CHEWABLE TABLET PO SCH (07:29)
[2019-02-26] MEDS: DOCUSATE SODIUM 100 MG CAP PO SCH (07:29)
[2019-02-26] MEDS: IBUPROFEN 800 MG TAB PO PRN (07:30)
[2019-02-26] MEDS ORDERED: PERCOCET PO (08:30)
[2019-02-26] MEDS ORDERED: IBUP80TA PO (08:30)
--- NOTE | 2019-03-10 21:35 | DSES ---
DATE OF ADMISSION: 02/24/2019 DATE OF DISCHARGE: 02/26/2019 FINAL DIAGNOSIS: 1. Term for elective repeat section. PROCEDURE PERFORMED DURING THIS ADMISSION: Repeat section and revision of old scar. CONDITION ON DISCHARGE: Stable. DISCHARGE INSTRUCTIONS: The patient is instructed to call if there is any severe bleeding, pain or temperature greater than 101. She is given a prescription for Motrin and Percocet as needed for pain. She is further instructed to call the office in followup in approximately two weeks for an incision check. BRIEF HISTORY: Xenia is a 23-year-old female, 2, para 1-0-0-1 with a history of prior section, who is being admitted for elective repeat section. She underwent the above-noted procedure, was then transferred to [facility] for postoperative care. Postoperatively, she did well. On postoperative day #1, her hemoglobin and hematocrit went down from 8.6 to 6.5. The patient did remain stable. We did speak to the patient; and at that point given her low hemoglobin and hematocrit, a decision was made to transfuse her 2 units of packed red blood cells. Her post transfusion hemoglobin and hematocrit the next day was 8/26.9. At this point, her exam was essentially unremarkable and we did decide to discharge the patient home to follow up in the office in approximately two weeks.
== END 2019-02-26 12:25 | disposition home or self-care (01) | DRG 540 ==
LOC: M LDI 04:57 → M OBS 12:40
PROVIDERS: ADMIT Obstetrics & Gynecology; ATTEND Obstetrics & Gynecology
PROC: 10D00Z1 Extraction of Products of Conception, Low, Open Approach (ICD-10-PCS; principal; 2019-02-24 09:30)
PROC: 30233N1 Transfusion of Nonautologous Red Blood Cells into Peripheral Vein, Percutaneous Approach (ICD-10-PCS; 2019-02-25)
DX: O34.211 Maternal care for low transverse scar from previous cesarean delivery (principal); Z37.0 Single live birth; Z3A.38 38 weeks gestation of pregnancy

== ENCOUNTER → 2019-03-19 | Outpatient (REF) | payer OTHER ==
[~2019-03-19] MED LIST changes: +RANI1TAB38 PO
== END ==
LOC: M SFHCCLAY 15:10
PROVIDERS: ATTEND Nurse Practitioner Family
DX: N39.0 Urinary tract infection, site not specified (principal)

== ENCOUNTER → 2019-10-23 | Outpatient (CLI) | payer OTHER | LOC: M LABSMTC 13:50 | PROVIDERS: ATTEND Family Medicine | DX: Z11.59 Encounter for screening for other viral diseases (principal) | CPT/HCPCS: C9803; U0003 ==

== ENCOUNTER → 2020-03-24 | Outpatient (REF) | payer OTHER ==
[2020-03-24 17:46] LABS: HEMOGLOBIN 10.7 g/dl (12.0-15.5); MEAN CORPUSCULAR HEMOGLOBIN 23.4 pg (27.0-33.0); MEAN CORPUSCULAR HGB CONC 30.6 g/dl (32.0-36.5); MEAN CORPUSCULAR VOLUME 76.6 fl (80.0-96.0); PLATELET COUNT, AUTOMATED 313 10^3/uL (150-450); RED BLOOD COUNT 4.57 10^6/uL (4.00-5.40); WHITE BLOOD COUNT 8.1 10^3/uL (4.0-10.0)
[2020-03-24 20:29] LABS: HCG, SERUM QUANTITATIVE 134407 MIU/ML; HEPATITIS C VIRUS ABY INDEX 0.1 INDEX (<0.8); HIV 1&2 SCREEN CENTAUR NEGATIVE (NEGATIVE)
== END ==
LOC: M LAB REF 16:14
PROVIDERS: ATTEND Obstetrics & Gynecology
DX: Z32.01 Encounter for pregnancy test, result positive (principal)

== ENCOUNTER → 2020-03-28 | Outpatient (CLI) | payer OTHER ==
--- NOTE | 2020-03-28 11:35 | REP ---
INDICATION: ENCOUNTER FOR PREG TEST RESULT POSITIVE COMPARISON: None TECHNIQUE: Transabdominal obstetrical ultrasound with color Doppler evaluation. FINDINGS: Single live early intrauterine is appreciated. Gestational sac with yolk sac and pole identified. [place]-rump length of 31 mm corresponds to 10 weeks 0 days gestational age with estimated date of delivery 10/24/2020. heart rate equals 169 beats per minute. 12 x 8 x 17 mm cystic structure posterior to the gestational sac is identified. Differential diagnosis may include small subchorionic hemorrhage or possible placental caba. IMPRESSION: 1. Single live early intrauterine at 10 weeks 0 days gestational age. Complete anatomical assessment should be performed and 19-20 weeks. 2. Cystic structure as described above may represent small subchorionic hemorrhage or early forming placental venous Caba. <Electronically signed by Pancho Palma > 03/28/20 [id number]
== END ==
LOC: M WHC 10:25
PROVIDERS: ATTEND Obstetrics & Gynecology
DX: Z32.01 Encounter for pregnancy test, result positive (principal); Z3A.10 10 weeks gestation of pregnancy

== ENCOUNTER → 2020-06-08 | Outpatient (CLI) | payer OTHER ==
--- NOTE | 2020-06-09 16:23 | REP ---
INDICATION: ANATOMY. COMPARISON: 03/28/2020. TECHNIQUE: Real-time sonographic evaluation of the gravid uterus performed. FINDINGS: Estimated gestational age is20 weeks 2 days, EDC 10/24/2020. Today's measurements indicate appropriate growth. Presentation: Breech Placenta posterior, grade 1, without evidence of placenta previa. heart rate is recorded at 143 beats per minute. Amniotic fluid is subjectively normal. Closed cervical length is measured at 3.1 cm. Biometry chart: BPD: 44 mm, 19 weeks 2 days, 25th percentile. HC: 177 mm, 20 weeks 1 days, 48th percentile AC: 155 mm, 20 weeks 5 days, 60th percentile Femur length: 34 mm, 20 weeks 5 days, 63rd percentile HC to AC ratio: 1.14, normal range 1.06-1.24. Estimated weight: 365g, 67th percentile. anatomy: Cranium: Grossly normal Lateral Ventricles/Choroid Plexus: Grossly normal Posterior Fossa/Cerebellum: Grossly normal Nose/lips/profile: Grossly normal Four chamber heart: Grossly normal Right ventricular outflow tract: Grossly normal Left ventricular outflow tract: Grossly normal Left-sided stomach: Grossly normal Kidneys: Grossly normal Bladder: Grossly normal Cord Insertion: Grossly normal 3 vessel cord: Grossly normal Spine: Grossly normal IMPRESSION: Viable single intrauterine gestation as above. <Electronically signed by Jamie Krishna > 06/09/20 [id number]
== END ==
LOC: M WHC 12:55
PROVIDERS: ATTEND Obstetrics & Gynecology
DX: Z36.89 Encounter for other specified antenatal screening (principal); Z3A.20 20 weeks gestation of pregnancy

== ENCOUNTER → 2020-07-21 | Outpatient (CLI) | payer OTHER ==
[2020-07-21 12:51] LABS: HEMATOCRIT 31.5 % (36.0-47.0); HEMOGLOBIN 9.2 g/dl (12.0-15.5); MEAN CORPUSCULAR HEMOGLOBIN 22.3 pg (27.0-33.0); MEAN CORPUSCULAR HGB CONC 29.2 g/dl (32.0-36.5); MEAN CORPUSCULAR VOLUME 76.3 fl (80.0-96.0); PLATELET COUNT, AUTOMATED 244 10^3/uL (150-450); RED BLOOD COUNT 4.13 10^6/uL (4.00-5.40); WHITE BLOOD COUNT 9.8 10^3/uL (4.0-10.0)
== END ==
LOC: M LAB 09:54
PROVIDERS: ATTEND Obstetrics & Gynecology
DX: Z34.81 Encounter for supervision of other normal pregnancy, first trimester (principal); Z36.89 Encounter for other specified antenatal screening

== ENCOUNTER → 2020-09-20 | Outpatient (REF) | payer OTHER | LOC: M LAB REF 16:24 | PROVIDERS: ATTEND Advanced Practice Midwife | DX: Z34.83 Encounter for supervision of other normal pregnancy, third trimester (principal) ==

== ENCOUNTER 2020-09-24 21:15 | Outpatient (CLI) | payer OTHER ==
[~2020-09-24] VITALS: Ht 152.4 cm; Wt 61.4 kg
[2020-09-24 21:32] VITALS: BP 113/75
[2020-09-24] MEDS ORDERED: FERR325T3 PO (21:44)
[2020-09-24] MEDS ORDERED: LR 1,000 ML IV ONE (22:05)
[2020-09-24 22:42] LABS: HEMATOCRIT 28.5 % (36.0-47.0); HEMOGLOBIN 8.4 g/dl (12.0-15.5); MEAN CORPUSCULAR HEMOGLOBIN 20.3 pg (27.0-33.0); MEAN CORPUSCULAR HGB CONC 29.5 g/dl (32.0-36.5); MEAN CORPUSCULAR VOLUME 68.8 fl (80.0-96.0); PLATELET COUNT, AUTOMATED 286 10^3/uL (150-450); RED BLOOD COUNT 4.14 10^6/uL (4.00-5.40); WHITE BLOOD COUNT 12.8 10^3/uL (4.0-10.0)
[2020-09-24 22:46] LABS: APPEARANCE, URINE HAZY (CLEAR); BACTERIA, URINE AUTO NEGATIVE (NEGATIVE); BILIRUBIN, URINE AUTO NEGATIVE (NEGATIVE); BLOOD, URINE BLOOD NEGATIVE (NEGATIVE); COLOR, URINE YELLOW (YELLOW); GLUCOSE, URINE (UA) AUTO NEGATIVE (NEGATIVE); KETONE, URINE AUTO NEGATIVE (NEGATIVE); LEUKOCYTE ESTERASE, URINE AUTO 3+ (NEGATIVE); MUCUS, URINE SMALL (NEGATIVE); NITRITE, URINE AUTO NEGATIVE (NEGATIVE); PROTEIN, URINE AUTO NEGATIVE (NEGATIVE); RBC, URINE AUTO 4 /HPF (0-3); SPECIFIC GRAVITY URINE AUTO 1.013 (1.002-1.035); SQUAMOUS EPITHELIAL CELL UR AU 2 /HPF (0-6); UROBILINOGEN, URINE AUTO 0.2 mg/dL (0.0-2.0); WBC, URINE AUTO 91 /HPF (0-3)
[2020-09-24] MEDS ORDERED: ceFAZolin 2 GM/D5W 50 ML IV BAG (J0690 PER 500MG) As Ordered ONE (23:08)
[2020-09-24] MEDS ORDERED: ceFAZolin SOD 2 GM in IV 1 EA IV ONE (23:10)
[2020-09-24] MEDS ORDERED: CEPH500T PO (23:17)
== END 2020-09-25 00:22 | disposition home or self-care (01) ==
LOC: M LDO 21:15
PROVIDERS: ATTEND Obstetrics & Gynecology
DX: O26.893 Other specified pregnancy related conditions, third trimester (principal); R25.2 Cramp and spasm; Z3A.35 35 weeks gestation of pregnancy
CPT/HCPCS: 59025; 81001; 85027; 96374; J0690

== ENCOUNTER → 2020-10-08 | Outpatient (CLI) | payer OTHER ==
[~2020-10-08] MED LIST changes: +CEPH500T PO
== END ==
LOC: M LABSMTC 10:17
PROVIDERS: ATTEND Anesthesiology
DX: Z01.818 Encounter for other preprocedural examination (principal); Z11.52 Encounter for screening for COVID-19

== ENCOUNTER 2020-10-13 05:45 | Inpatient (IN) | payer OTHER ==
[~2020-10-13] VITALS: Ht 152.4 cm; Wt 62.0 kg
[2020-10-13] VITALS (8 sets, daily range): BP systolic 105–121; BP diastolic 55–85
[2020-10-13] MEDS ORDERED: LACTATED RINGER'S 1000 ML IV STA (05:48)
[2020-10-13] MEDS ORDERED: BICITRA 30ML SOLN UDC PO ONE (05:50)
[2020-10-13] MEDS ORDERED: ceFAZolin SOD 2 GM in IV 1 EA IV ONE (05:50)
[2020-10-13] MEDS ORDERED: LR 1,000 ML IV SCH (05:50)
[2020-10-13 06:44] LABS: HEMATOCRIT 30.1 % (36.0-47.0); HEMOGLOBIN 8.7 g/dl (12.0-15.5); MEAN CORPUSCULAR HEMOGLOBIN 19.6 pg (27.0-33.0); MEAN CORPUSCULAR HGB CONC 28.9 g/dl (32.0-36.5); MEAN CORPUSCULAR VOLUME 67.9 fl (80.0-96.0); PLATELET COUNT, AUTOMATED 274 10^3/uL (150-450); RED BLOOD COUNT 4.43 10^6/uL (4.00-5.40); WHITE BLOOD COUNT 10.9 10^3/uL (4.0-10.0)
[2020-10-13] MEDS ORDERED: OXYTOCIN DRIP 30 UNITS in IV 1 EA IV SCH ×6 (07:45)
[2020-10-13] MEDS ORDERED: RHOGAM 300 MCG (1500 IU) INJ (J2790) IM SCH ×3 (07:45)
[2020-10-13] MEDS ORDERED: PERCOCET 5MG/325MG TAB PO PRN ×3 (07:45)
[2020-10-13] MEDS ORDERED: KETOROLAC 30 MG/ML 1ML VIAL IV SCH ×2 (07:45)
[2020-10-13] MEDS ORDERED: SIMETHICONE 80MG CHEW TAB PO PRN ×3 (07:45)
[2020-10-13] MEDS ORDERED: MEASLES,MUMPS,RUBELLA VACCINE INJ (MMR-II) (90707) SC SCH ×3 (07:45)
[2020-10-13] MEDS ORDERED: MOM 30ML SUSPENSION UDC PO PRN ×3 (07:45)
[2020-10-13] MEDS ORDERED: OXYTOCIN INJ 10 UNITS/ML VIAL (J2590) As Ordered ONE (07:49)
[2020-10-13] MEDS ORDERED: ONDANSETRON 4MG/2ML VIAL As Ordered ONE ×2 (07:49→10:18)
[2020-10-13] MEDS ORDERED: KETOROLAC 60MG 2ML VIAL As Ordered ONE (07:49)
[2020-10-13] MEDS ORDERED: dexameTHASONE 4 MG/ML 1ML VIAL (J1100 PER 1MG) As Ordered ONE (07:49)
[2020-10-13] MEDS ORDERED: fentaNYL 100 MCG/2 ML INJECTION (J3010) As Ordered ONE (07:49)
[2020-10-13] MEDS ORDERED: MORPHINE PRES-FREE INJ 10 MG/10 ML VIAL (J2274) As Ordered ONE (07:49)
[2020-10-13] MEDS ORDERED: ONDANSETRON 4MG/2ML VIAL IV PRN ×2 (08:43→10:15)
[2020-10-13] MEDS ORDERED: diphenhydrAMINE 50MG/ML VIAL (J1200) IV PRN (08:43)
[2020-10-13] MEDS ORDERED: NALBUPHINE HCL 10 MG/ML AMP (J2300) IV PRN (08:43)
[2020-10-13] MEDS ORDERED: NALOXONE INJ 0.4MG/1ML VIAL (J2310 PER 1MG) IV PRN ×2 (08:43)
[2020-10-13] MEDS ORDERED: ePHEDrine SULFATE 25 MG/5 ML(5MG/ML) SYRINGE As Ordered ONE (08:51)
[2020-10-13] MEDS ORDERED: PHENYLephrine 500MCG 5ML (100MCG/ML) SYRINGE As Ordered ONE (08:51)
[2020-10-13] MEDS: DOCUSATE SODIUM 100MG CAPSULE PO SCH ×2 (09:00→21:21)
[2020-10-13] MEDS ORDERED: PRENATAL VITAMINS CHEWABLE TABLET PO SCH ×2 (09:00)
[2020-10-13] MEDS ORDERED: DOCUSATE SODIUM 100MG CAPSULE PO SCH ×2 (09:00)
[2020-10-13] MEDS: PRENATAL VITAMINS CHEWABLE TABLET PO SCH (09:00)
[2020-10-13 09:44] LABS: CORD GAS ABE V -4.9; CORD GAS HCO3 V 19.8 MEQ/L; CORD GAS O2 SAT V 89.6 %; CORD GAS PCO2 V 36.1 mmHg; CORD GAS PH V 7.357 UNITS; CORD GAS PO2 V 44.5 mmHg; CORD GAS SBC V 20.3 MEQ/L; CORD GAS TCO2 V 20.9 MEQ/L
[2020-10-13 09:46] LABS: CORD GAS ABE A -2.9; CORD GAS HCO3 A 24.1 MEQ/L; CORD GAS O2 SAT A 32.9 %; CORD GAS PCO2 A 50.4 mmHg; CORD GAS PH A 7.298 UNITS; CORD GAS PO2 A 17.3 mmHg; CORD GAS SBC A 20.5 MEQ/L; CORD GAS TCO2 A 25.7 MEQ/L
[2020-10-13] MEDS ORDERED: OXYTOCIN 30 UNITS IN 0.9% NaCl 500ML IV BAG (J2590) As Ordered ONE (10:13)
[2020-10-13] MEDS ORDERED: HYDROMORPHONE HCL 0.5 MG/ 0.5 ML SYRINGE (J1170 PER 1) IV PRN (10:15)
[2020-10-13] MEDS ORDERED: oxyCODONE 5MG TAB PO PRN (10:15)
[2020-10-13] MEDS ORDERED: fentaNYL 100 MCG/2 ML INJECTION (J3010) IV PRN (10:15)
[2020-10-13] MEDS: METOCLOPRAMIDE INJ 10MG/2ML VIAL (J2765 PER 1) IV PRN ×2 (11:20→17:50)
[2020-10-13] MEDS: KETOROLAC 30 MG/ML 1ML VIAL IV SCH ×2 (15:57→21:22)
[2020-10-14 02:00] VITALS: BP 108/59
[2020-10-14] MEDS: KETOROLAC 30 MG/ML 1ML VIAL IV SCH (03:57)
[2020-10-14 05:37] VITALS: BP 92/53
[2020-10-14 05:50] LABS: HEMATOCRIT 23.9 % (36.0-47.0); MEAN CORPUSCULAR HEMOGLOBIN 19.4 pg (27.0-33.0); MEAN CORPUSCULAR HGB CONC 28.5 g/dl (32.0-36.5); MEAN CORPUSCULAR VOLUME 68.3 fl (80.0-96.0); PLATELET COUNT, AUTOMATED 215 10^3/uL (150-450); WHITE BLOOD COUNT 14.3 10^3/uL (4.0-10.0)
[2020-10-14 05:52] LABS: HEMOGLOBIN 6.8 g/dl (12.0-15.5)
--- NOTE | 2020-10-14 07:34 | IPNPDOC ---
Progress Note Date of Service: Oct 14, 2020 Progress Note SUBJECT: No complaints. does not feel dizzy OBJECTIVE: VITAL SIGNS: Within normal limits, afebrile. Alert and oriented times three. Breath sounds clear to auscultation. Heart rate: Regular rate and rhythm, no murmurs, rubs or gallops. Abdomen: Fundus firm at U-2. Soft, NTTP. [Minimal] lochia. Hb=6.8 g/dl ASSESSMENT:POD#1 PLAN: routine post op care discussed low Hemoglobin No intervention at this time VS, I&O, 24H, Fishbone Vital Signs/I&O Vital Signs Date Time Temp Pulse Resp B/P (MAP) Pulse Ox O2 Delivery O2 Flow Rate FiO2 10/14/20 05:37 97.9 89 18 92/53 (66) 99 Room Air I&O- Last 24 Hours up to 6 AM 10/14/20 05:59 Intake Total 900 ml Output Total 2850 ml Balance -1950 ml Laboratory Data 24H LABS Laboratory Tests 2 10/13/20 08:59: Cord Arterial Blood pH 7.298, Cord Arterial Blood PCO2 50.4, Cord Arterial Blood PO2 17.3, Cord Arterial Blood HCO3 24.1, Cord Arterial Blood Total CO2 25.7, Cord Arterial Blood Base Excess -2.9, Cord Arterial Base Excess (Standard 20.5, Cord Arterial Bld Oxygen Saturation 32.9, Cord Venous Blood pH 7.357, Cord Venous Blood PCO2 36.1, Cord Venous Blood PO2 44.5, Cord Venous Blood HCO3 19.8, Cord Venous Blood Total CO2 20.9, Cord Venous Base Excess (Actual) -4.9, Cord Venous Base Excess (Standard) 20.3, Cord Venous Blood Oxygen Saturation 89.6 10/14/20 05:18: Nucleated Red Blood Cells % (auto) 0.0 CBC/BMP Laboratory Tests 10/14/20 05:18 JILL GALLARDO MD Oct 14, 2020 07:34
[2020-10-14] MEDS ORDERED: BOOSTRIX/ADACEL VACCINE (DIPHTH/PERTUSS/ACELL/TETANUS) 0.5ML SYR IM ONE (09:00)
[2020-10-14] MEDS: PRENATAL VITAMINS CHEWABLE TABLET PO SCH (09:33)
[2020-10-14] MEDS: DOCUSATE SODIUM 100MG CAPSULE PO SCH ×2 (09:33→20:09)
[2020-10-14] MEDS ORDERED: IBUPROFEN 800 MG TAB PO SCH ×2 (09:45)
[2020-10-14 09:54] VITALS: BP 98/56
[2020-10-14] MEDS: IBUPROFEN 800 MG TAB PO SCH ×2 (11:23→20:09)
[2020-10-14 14:00] VITALS: BP 109/56
[2020-10-14 17:57] VITALS: BP 111/71
[2020-10-14] MEDS: FIORICET TAB PO PRN (18:47)
[2020-10-14 21:59] VITALS: BP 104/56
[2020-10-15 02:07] VITALS: BP 106/56
[2020-10-15] MEDS: IBUPROFEN 800 MG TAB PO SCH ×2 (04:42→12:14)
[2020-10-15 06:11] VITALS: BP 110/66
[2020-10-15] MEDS: DOCUSATE SODIUM 100MG CAPSULE PO SCH (09:49)
[2020-10-15] MEDS: PRENATAL VITAMINS CHEWABLE TABLET PO SCH (09:49)
[2020-10-15] MEDS: FIORICET TAB PO PRN (09:50)
[2020-10-15] MEDS ORDERED: PERCOCET PO (09:58)
[2020-10-15] MEDS ORDERED: IBUP80TA PO (09:58)
--- NOTE | 2020-10-15 10:13 | DS.PDOC ---
Discharge Summary General Date of Admission Oct 13, 2020 at 05:45 Date of Discharge 10/15/20 Attending Physician: Joey Romo DO Discharge Summary PROCEDURES PERFORMED DURING STAY: Repeat section. ADMITTING DIAGNOSES: 1. Term history of 3 prior section. DISCHARGE DIAGNOSES: 1. Same as well as above. COMPLICATIONS/CHIEF COMPLAINT: Term ,History Prior Section X3. HISTORY OF PRESENT ILLNESS: Mrs. Cates presented for scheduled section. She underwent a repeat section, productive of live born male . Patient did well postoperatively by postoperative day #2 had met all discharge criteria is as discharged home in stable condition DISCHARGE MEDICATIONS: Please see below. ALLERGIES: Please see below. PHYSICAL EXAMINATION ON DISCHARGE: VITAL SIGNS: Please see below. GENERAL: No distress HEENT: WNL ABDOMINAL EXAMINATION: Fundus firm. Dressing intact EXTREMITIES: Equal strength and motion SKIN: Intact NEUROLOGICAL EXAMINATION: Grossly intact PSYCHIATRIC EXAMINATION: Appropriate ACTIVITY: As tolerated. DIET: Regular DISCHARGE PLAN: Home DISPOSITION: Home. DISCHARGE INSTRUCTIONS: 1. Follow-up in 2 weeks. 2. Remain on pelvic rest for 6 weeks. 3. Reports severe pain heavy vaginal bleeding or fevers.. DISCHARGE CONDITION: Stable. Vital Signs/I&Os Vital Signs Date Time Temp Pulse Resp B/P (MAP) Pulse Ox O2 Delivery O2 Flow Rate FiO2 10/15/20 09:50 18 10/15/20 06:11 99.8 77 110/66 (81) 99 10/14/20 16:53 Room Air Discharge Medications Scheduled Ferrous Sulfate (Ferrous Sulfate) 325 Mg Tablet.dr, 325 MG PO DAILY, (Reported) Multivitamin (Gummi Bear Multivitamin) 1 Each Tab.chew, 1 CHW PO DAILY, (Reported) Scheduled PRN Ibuprofen (Ibuprofen) 800 Mg Tablet, 800 MG PO Q8HP PRN for PAIN LEVEL 3-5 Oxycodone/Acetaminophen (Oxycodone-Acetaminophen 5-325) 1 Each Tablet, 1 TAB PO Q4H PRN for MILD/MODERATE PAIN (PS 1-7) Allergies Coded Allergies: No Known Allergies (Unverified , 10/13/20) AMBREEN HOBSON MD. Oct 15, 2020 10:13
[2020-10-15 11:13] LABS: HEMATOCRIT 27.7 % (36.0-47.0); HEMOGLOBIN 7.9 g/dl (12.0-15.5); MEAN CORPUSCULAR HEMOGLOBIN 19.7 pg (27.0-33.0); MEAN CORPUSCULAR HGB CONC 28.5 g/dl (32.0-36.5); MEAN CORPUSCULAR VOLUME 68.9 fl (80.0-96.0); PLATELET COUNT, AUTOMATED 274 10^3/uL (150-450); RED BLOOD COUNT 4.02 10^6/uL (4.00-5.40); WHITE BLOOD COUNT 15.4 10^3/uL (4.0-10.0)
== END 2020-10-15 12:45 | disposition home or self-care (01) | DRG 540 ==
LOC: M LDI 05:45 → M OBS 10:45
PROVIDERS: ADMIT Obstetrics & Gynecology; ATTEND Obstetrics & Gynecology
PROC: 10D00Z1 Extraction of Products of Conception, Low, Open Approach (ICD-10-PCS; principal; 2020-10-13 07:30)
DX: O34.211 Maternal care for low transverse scar from previous cesarean delivery (principal); Z3A.38 38 weeks gestation of pregnancy; Z37.0 Single live birth

== ENCOUNTER → 2022-02-20 | Outpatient (REF) | payer OTHER, MEDICAID ==
[~2022-02-20] MED LIST changes: -ERYT-52 PO; +ERYT-88 PO
[2022-02-20 17:38] LABS: HEMATOCRIT 32.9 % (36.0-47.0); HEMOGLOBIN 9.8 g/dl (12.0-15.5); MEAN CORPUSCULAR HEMOGLOBIN 21.5 pg (27.0-33.0); MEAN CORPUSCULAR HGB CONC 29.8 g/dl (32.0-36.5); MEAN CORPUSCULAR VOLUME 72.1 fl (80.0-96.0); PLATELET COUNT, AUTOMATED 305 10^3/uL (150-450); RED BLOOD COUNT 4.56 10^6/uL (4.00-5.40); WHITE BLOOD COUNT 8.2 10^3/uL (4.0-10.0)
[2022-02-20 19:49] LABS: HEPATITIS B SURFACE ANTIGEN NEGATIVE (NEGATIVE)
[2022-02-21 14:43] LABS: HEPATITIS C VIRUS ABY INDEX 0.1 INDEX (<0.8)
[2022-02-21 14:44] LABS: HIV 1&2 SCREEN CENTAUR NEGATIVE (NEGATIVE)
== END ==
LOC: M LAB REF 17:14
PROVIDERS: ATTEND Obstetrics & Gynecology
DX: O36.80X0 Pregnancy with inconclusive fetal viability, not applicable or unspecified (principal)

== ENCOUNTER → 2022-04-26 | Outpatient (REF) | payer OTHER, MEDICAID | LOC: M LAB REF 16:16 | PROVIDERS: ATTEND Obstetrics & Gynecology | DX: Z34.82 Encounter for supervision of other normal pregnancy, second trimester (principal) ==

== ENCOUNTER 2022-05-09 10:28 | Inpatient (IN) | payer MEDICAID, OTHER ==
[~2022-05-09] VITALS: Ht 152.4 cm; Wt 52.3 kg
[2022-05-09 12:04] LABS: BASO % 0.2 % (0.0-1.0); EOS % 0.2 % (0.0-3.0); HEMATOCRIT 31.8 % (36.0-47.0); HEMOGLOBIN 9.6 g/dl (12.0-15.5); LYMPH # 1.5 10^3/uL (1.5-5.0); LYMPH % 11.1 % (24.0-44.0); MEAN CORPUSCULAR HEMOGLOBIN 21.8 pg (27.0-33.0); MEAN CORPUSCULAR HGB CONC 30.2 g/dl (32.0-36.5); MEAN CORPUSCULAR VOLUME 72.1 fl (80.0-96.0); MONO # 1.3 10^3/uL (0.0-0.8); MONO % 9.5 % (2.0-8.0); NEUTROPHILS # 10.4 10^3/uL (1.5-8.5); NEUTROPHILS % 77.9 % (36.0-66.0); PLATELET COUNT, AUTOMATED 305 10^3/uL (150-450); RED BLOOD COUNT 4.41 10^6/uL (4.00-5.40); WHITE BLOOD COUNT 13.3 10^3/uL (4.0-10.0)
[2022-05-09 12:46] LABS: LIPASE 35 U/L (12-53)
[2022-05-09 12:48] LABS: ALBUMIN 2.7 G/DL (3.2-5.2); ALKALINE PHOSPHATASE 104 U/L (46-116); ALT/SGPT 12 U/L (7.0-40); AST/SGOT 15 U/L (<34); BILIRUBIN,DIRECT 0.3 MG/DL (<0.4); BILIRUBIN,TOTAL 1.2 MG/DL (0.3-1.2); BLOOD UREA NITROGEN 8 MG/DL (9-23); CALCIUM LEVEL 8.2 MG/DL (8.5-10.1); CARBON DIOXIDE LEVEL 22 MMOL/L (20-31); CHLORIDE LEVEL 102 MMOL/L (98-107); CREATININE FOR GFR 0.56 MG/DL (0.55-1.30); GLOMERULAR FILTRATION RATE > 60.0 (>60); GLUCOSE, FASTING 92 MG/DL (60-100); POTASSIUM SERUM 3.7 MMOL/L (3.5-5.1); SODIUM LEVEL 133 MMOL/L (136-145)
[2022-05-09] MEDS ORDERED: NS 1,000 ML IV ONE (15:50)
[2022-05-09] MEDS ORDERED: cefTRIAXone SOD 1 GM in D5W MINI-BAG PLUS 50 ML IV ONE (15:50)
[2022-05-09 17:01] LABS: RSV AMPLIFICATION NEGATIVE (NEGATIVE)
[2022-05-09] MEDS ORDERED: LR 1,000 ML IV ONE (17:25)
[2022-05-09] MEDS ORDERED: ACETAMINOPHEN TAB 650MG DOSE (2X325MG) PO ONE (18:15)
[2022-05-09] MEDS: LR 1,000 ML IV SCH (18:27)
[2022-05-09] MEDS ORDERED: CLIN1GEL22 TOP (18:37)
[2022-05-09] MEDS ORDERED: HOME MED LIST COMPLETE! XX SCH (18:40)
[2022-05-09 20:30] VITALS: BP 90/47
[2022-05-09] MEDS ORDERED: PROMETHAZINE 25MG/ML 1ML VIAL IV ONE (20:50)
[2022-05-09] MEDS ORDERED: BUTORPHANOL 2 MG/ML 1ML VIAL IV ONE (20:50)
[2022-05-10] VITALS: BP 96/52
[2022-05-10] MEDS: LR 1,000 ML IV SCH ×2 (00:38→08:25)
[2022-05-10 08:00] VITALS: BP 89/52
[2022-05-10 08:39] LABS: HEMATOCRIT 25.4 % (36.0-47.0); HEMOGLOBIN 7.7 g/dl (12.0-15.5); MEAN CORPUSCULAR HEMOGLOBIN 21.6 pg (27.0-33.0); MEAN CORPUSCULAR HGB CONC 30.3 g/dl (32.0-36.5); MEAN CORPUSCULAR VOLUME 71.3 fl (80.0-96.0); PLATELET COUNT, AUTOMATED 261 10^3/uL (150-450); RED BLOOD COUNT 3.56 10^6/uL (4.00-5.40); WHITE BLOOD COUNT 10.6 10^3/uL (4.0-10.0)
[2022-05-10] MEDS ORDERED: ACETAMINOPHEN 500 MG TAB PO PRN (09:25)
[2022-05-10 12:00] VITALS: BP 96/50
[2022-05-10] MEDS ORDERED: NS 500 ML IV ONE (15:50)
[2022-05-10 16:00] VITALS: BP 89/50
[2022-05-10] MEDS ORDERED: cefTRIAXone SOD 2 GM in D5W MINI-BAG PLUS 50 ML IV SCH (16:00)
[2022-05-10] MEDS ORDERED: cefTRIAXone SOD 1 GM in D5W MINI-BAG PLUS 50 ML IV SCH (16:00)
[2022-05-10 16:04] LABS: BASO % 0.2 % (0.0-1.0); EOS # 0.1 10^3/uL (0.0-0.5); EOS % 0.7 % (0.0-3.0); LYMPH # 1.5 10^3/uL (1.5-5.0); MONO # 1.1 10^3/uL (0.0-0.8); MONO % 10.2 % (2.0-8.0); NEUTROPHILS # 7.7 10^3/uL (1.5-8.5); NEUTROPHILS % 74.2 % (36.0-66.0)
[2022-05-10] MEDS: NS 0.45% 1,000 ML IV SCH (17:46)
[2022-05-10 20:00] VITALS: BP 103/58
[2022-05-11] VITALS: BP 88/52
[2022-05-11] MEDS: NS 0.45% 1,000 ML IV SCH ×2 (01:12→09:03)
[2022-05-11 04:00] VITALS: BP 93/54
[2022-05-11 06:42] LABS: BASO % 0.2 % (0.0-1.0); EOS # 0.2 10^3/uL (0.0-0.5); EOS % 1.7 % (0.0-3.0); HEMATOCRIT 25.8 % (36.0-47.0); HEMOGLOBIN 7.6 g/dl (12.0-15.5); LYMPH # 2.2 10^3/uL (1.5-5.0); MEAN CORPUSCULAR HEMOGLOBIN 21.3 pg (27.0-33.0); MEAN CORPUSCULAR HGB CONC 29.5 g/dl (32.0-36.5); MEAN CORPUSCULAR VOLUME 72.5 fl (80.0-96.0); MONO # 0.8 10^3/uL (0.0-0.8); MONO % 8.8 % (2.0-8.0); NEUTROPHILS # 5.6 10^3/uL (1.5-8.5); NEUTROPHILS % 63.3 % (36.0-66.0); PLATELET COUNT, AUTOMATED 267 10^3/uL (150-450); RED BLOOD COUNT 3.56 10^6/uL (4.00-5.40); WHITE BLOOD COUNT 8.9 10^3/uL (4.0-10.0)
[2022-05-11 07:19] LABS: ALKALINE PHOSPHATASE 88 U/L (46-116); ALT/SGPT < 9 U/L (7.0-40); AST/SGOT 13 U/L (<34); BILIRUBIN,TOTAL 0.4 MG/DL (0.3-1.2); BLOOD UREA NITROGEN < 5 MG/DL (9-23); CALCIUM LEVEL 7.7 MG/DL (8.5-10.1); CARBON DIOXIDE LEVEL 21 MMOL/L (20-31); CHLORIDE LEVEL 109 MMOL/L (98-107); CREATININE FOR GFR 0.45 MG/DL (0.55-1.30); GLOMERULAR FILTRATION RATE > 60.0 (>60); GLUCOSE, FASTING 85 MG/DL (60-100); POTASSIUM SERUM 3.7 MMOL/L (3.5-5.1); SODIUM LEVEL 137 MMOL/L (136-145); TOTAL PROTEIN 5.5 G/DL (5.7-8.2)
[2022-05-11 09:00] VITALS: BP 91/54
[2022-05-11] MEDS ORDERED: CEPH500C PO ×2 (11:05→11:34)
== END 2022-05-11 11:40 | disposition home or self-care (01) | DRG 566 ==
LOC: M ED 10:28 → M ED INP 17:25 → ENRESERV 19:45 → M PED 20:00
PROVIDERS: ADMIT Advanced Practice Midwife; ATTEND Advanced Practice Midwife
DX: O23.02 Infections of kidney in pregnancy, second trimester (principal); O34.211 Maternal care for low transverse scar from previous cesarean delivery; B96.1 Klebsiella pneumoniae [K. pneumoniae] as the cause of diseases classified elsewhere; O99.012 Anemia complicating pregnancy, second trimester; D64.9 Anemia, unspecified; Z3A.18 18 weeks gestation of pregnancy; N10 Acute pyelonephritis

== ENCOUNTER → 2022-05-15 | Outpatient (CLI) | payer OTHER ==
[~2022-05-15] MED LIST changes: +CEPH500C PO; +CLIN1GEL22 TOP
== END ==
LOC: M WHC 09:17
PROVIDERS: ATTEND Obstetrics & Gynecology
DX: Z34.82 Encounter for supervision of other normal pregnancy, second trimester (principal); Z3A.20 20 weeks gestation of pregnancy

== ENCOUNTER → 2022-05-31 | Outpatient (REF) | payer OTHER, MEDICAID | LOC: M LAB REF 16:29 | PROVIDERS: ATTEND Obstetrics & Gynecology | DX: Z34.82 Encounter for supervision of other normal pregnancy, second trimester (principal); Z3A.00 Weeks of gestation of pregnancy not specified; B96.1 Klebsiella pneumoniae [K. pneumoniae] as the cause of diseases classified elsewhere ==

== ENCOUNTER → 2022-06-12 | Outpatient (CLI) | payer OTHER | LOC: M WHC 10:33 | PROVIDERS: ATTEND Obstetrics & Gynecology | DX: Z34.82 Encounter for supervision of other normal pregnancy, second trimester (principal) ==

== ENCOUNTER → 2022-06-16 | Outpatient (REF) | payer OTHER | LOC: M LAB REF 18:03 | PROVIDERS: ATTEND Student in an Organized Health Care Education/Training Program | DX: J02.9 Acute pharyngitis, unspecified (principal) ==

== ENCOUNTER → 2022-07-05 | Outpatient (CLI) | payer OTHER ==
[2022-07-05 15:25] LABS: HEMATOCRIT 30.2 % (36.0-47.0); HEMOGLOBIN 8.8 g/dl (12.0-15.5); MEAN CORPUSCULAR HEMOGLOBIN 20.8 pg (27.0-33.0); MEAN CORPUSCULAR HGB CONC 29.1 g/dl (32.0-36.5); MEAN CORPUSCULAR VOLUME 71.2 fl (80.0-96.0); PLATELET COUNT, AUTOMATED 337 10^3/uL (150-450); RED BLOOD COUNT 4.24 10^6/uL (4.00-5.40); WHITE BLOOD COUNT 9.5 10^3/uL (4.0-10.0)
== END ==
LOC: M LAB 13:40
PROVIDERS: ATTEND Obstetrics & Gynecology
DX: Z34.82 Encounter for supervision of other normal pregnancy, second trimester (principal)

== ENCOUNTER → 2022-09-04 | Outpatient (REF) | payer OTHER, MEDICAID | LOC: M LAB REF 12:30 | PROVIDERS: ATTEND Obstetrics & Gynecology | DX: Z34.83 Encounter for supervision of other normal pregnancy, third trimester (principal) ==

== ENCOUNTER 2022-09-18 05:38 | Inpatient (IN) | payer OTHER ==
[2022-09-18] VITALS (8 sets, daily range): BP systolic 102–128; BP diastolic 63–84; O2SAT 98–100
[~2022-09-18] VITALS: Ht 154.9 cm; Wt 59.7 kg
[2022-09-18] MEDS ORDERED: LACTATED RINGER'S 1000 ML IV STA (05:59)
[2022-09-18] MEDS ORDERED: BICITRA 30ML SOLN UDC PO ONE (06:00)
[2022-09-18] MEDS ORDERED: LR 1,000 ML IV SCH (06:00)
[2022-09-18] MEDS ORDERED: ceFAZolin SOD 2 GM in IV 1 EA IV ONE (06:00)
[2022-09-18 06:44] LABS: HEMATOCRIT 28.6 % (36.0-47.0); HEMOGLOBIN 8.1 g/dl (12.0-15.5); MEAN CORPUSCULAR HEMOGLOBIN 18.8 pg (27.0-33.0); MEAN CORPUSCULAR HGB CONC 28.3 g/dl (32.0-36.5); MEAN CORPUSCULAR VOLUME 66.2 fl (80.0-96.0); PLATELET COUNT, AUTOMATED 295 10^3/uL (150-450); RED BLOOD COUNT 4.32 10^6/uL (4.00-5.40); WHITE BLOOD COUNT 10.9 10^3/uL (4.0-10.0)
[2022-09-18] MEDS ORDERED: RHOGAM 300MCG (1500IU) INJ IM SCH (07:30)
[2022-09-18] MEDS ORDERED: ACETAMINOPHEN 500 MG TAB PO PRN (07:30)
[2022-09-18] MEDS ORDERED: SIMETHICONE 80MG CHEW TAB PO PRN (07:30)
[2022-09-18] MEDS ORDERED: OXYTOCIN DRIP 30 UNITS in IV 1 EA IV SCH (07:30)
[2022-09-18] MEDS ORDERED: OXYTOCIN INJ 10UNITS/ML 1ML VIAL As Ordered ONE (07:41)
[2022-09-18] MEDS ORDERED: fentaNYL 100 MCG/2 ML INJECTION As Ordered ONE (07:41)
[2022-09-18] MEDS ORDERED: MORPHINE PRES-FREE INJ 10 MG/10 ML VIAL As Ordered ONE (07:41)
[2022-09-18] MEDS ORDERED: ONDANSETRON 4MG 2ML VIAL As Ordered ONE ×2 (08:04→09:23)
[2022-09-18] MEDS ORDERED: KETOROLAC 60MG 2ML VIAL As Ordered ONE (08:05)
[2022-09-18 08:18] LABS: CORD GAS ABE V -3.4; CORD GAS PCO2 V 46.5 mmHg; CORD GAS PH V 7.313 UNITS; CORD GAS SBC V 20.4 MMOL/L; CORD GAS TCO2 V 24.5 MMOL/L
[2022-09-18 08:20] LABS: CORD GAS ABE A -5.1; CORD GAS O2 SAT A 24.5 %; CORD GAS PCO2 A 54.8 mmHg; CORD GAS PH A 7.24 UNITS; CORD GAS PO2 A 15.5 mmHg; CORD GAS SBC A 18.6 MMOL/L; CORD GAS TCO2 A 24.6 MMOL/L
[2022-09-18] MEDS ORDERED: OXYTOCIN 30UNITS IN 0.9% NaCl 500ML IV BAG As Ordered ONE (08:33)
[2022-09-18] MEDS: DOCUSATE SODIUM 100MG CAPSULE PO SCH ×2 (09:00→19:29)
[2022-09-18] MEDS: PRENATAL VITAMINS CHEWABLE TABLET PO SCH (09:00)
[2022-09-18] MEDS ORDERED: fentaNYL 100 MCG/2 ML INJECTION IV PRN (09:25)
[2022-09-18] MEDS ORDERED: METOCLOPRAMIDE INJ 10MG/2ML VIAL IV PRN ×2 (09:25)
[2022-09-18] MEDS ORDERED: MEPERIDINE 25 MG/ML 1ML VIAL IV PRN (09:25)
[2022-09-18] MEDS ORDERED: oxyCODONE 5MG TAB PO PRN ×3 (09:25→21:15)
[2022-09-18] MEDS ORDERED: NALOXONE INJ 0.4MG/1ML VIAL IV PRN ×2 (09:25)
[2022-09-18] MEDS ORDERED: diphenhydrAMINE 50MG/ML VIAL IV PRN (09:25)
[2022-09-18] MEDS ORDERED: **NOTE PATIENT COMMENT** MISC XX SCH (09:25)
[2022-09-18] MEDS: SLF 3 ML SYR IV SCH ×2 (09:25→17:16)
[2022-09-18] MEDS ORDERED: ONDANSETRON 4MG 2ML VIAL IV PRN ×2 (09:25→18:50)
[2022-09-18] MEDS ORDERED: METOCLOPRAMIDE INJ 10MG/2ML VIAL As Ordered ONE (09:36)
[2022-09-18] MEDS: KETOROLAC 30 MG/ML 1ML VIAL IV SCH ×2 (15:02→19:29)
[2022-09-18] MEDS ORDERED: LR 500 ML IV ONE (19:00)
[2022-09-18] MEDS: ACETAMINOPHEN 500 MG TAB PO SCH ×2 (19:28→23:38)
[2022-09-19] MEDS: KETOROLAC 30 MG/ML 1ML VIAL IV SCH (01:39)
[2022-09-19] MEDS: SLF 3 ML SYR IV SCH (01:39)
[2022-09-19 02:00] VITALS: BP 103/58; O2SAT 97
[2022-09-19] MEDS: ACETAMINOPHEN 500 MG TAB PO SCH ×4 (05:35→23:02)
[2022-09-19 05:51] VITALS: BP 103/57; O2SAT 99
[2022-09-19 06:38] LABS: MEAN CORPUSCULAR HGB CONC 28.4 g/dl (32.0-36.5); MEAN CORPUSCULAR VOLUME 66.9 fl (80.0-96.0); PLATELET COUNT, AUTOMATED 232 10^3/uL (150-450); RED BLOOD COUNT 3.47 10^6/uL (4.00-5.40); WHITE BLOOD COUNT 8.8 10^3/uL (4.0-10.0)
[2022-09-19 06:41] LABS: HEMOGLOBIN 6.6 g/dl (12.0-15.5)
[2022-09-19 06:42] LABS: HEMATOCRIT 23.2 % (36.0-47.0)
[2022-09-19] MEDS: PRENATAL VITAMINS CHEWABLE TABLET PO SCH (08:50)
[2022-09-19] MEDS: DOCUSATE SODIUM 100MG CAPSULE PO SCH ×2 (08:50→21:01)
[2022-09-19 10:00] VITALS: BP 106/61; O2SAT 99
[2022-09-19] MEDS ORDERED: IBUPROFEN 800 MG TAB PO SCH (10:00)
[2022-09-19] MEDS: IBUPROFEN 600MG TAB PO SCH ×3 (10:20→21:01)
[2022-09-19 14:00] VITALS: BP 113/67; O2SAT 99
[2022-09-19 18:00] VITALS: BP 107/59; O2SAT 100
[2022-09-19 22:00] VITALS: BP 109/61; O2SAT 98
[2022-09-20 02:00] VITALS: BP 98/65; O2SAT 99
[2022-09-20] MEDS: IBUPROFEN 600MG TAB PO SCH ×3 (03:05→16:15)
[2022-09-20] MEDS: ACETAMINOPHEN 500 MG TAB PO SCH ×2 (05:09→12:17)
[2022-09-20] MEDS ORDERED: MEASLES,MUMPS,RUBELLA VACCINE INJ (MMR-II) SC.IMMUN ONE (09:00)
[2022-09-20] MEDS: DOCUSATE SODIUM 100MG CAPSULE PO SCH (09:43)
[2022-09-20] MEDS: PRENATAL VITAMINS CHEWABLE TABLET PO SCH (09:43)
[2022-09-20 09:54] VITALS: BP 98/65; TEMP 96.9; O2SAT 99
[2022-09-20] MEDS ORDERED: OXYC-517 PO (17:44)
[2022-09-20] MEDS ORDERED: COLA100C5 PO (17:44)
[2022-09-20] MEDS ORDERED: IBUP-1022 PO (17:44)
== END 2022-09-20 18:20 | disposition home or self-care (01) | DRG 540 ==
LOC: M LDI 05:38 → M OBS 10:14
PROVIDERS: ADMIT Obstetrics & Gynecology; ATTEND Obstetrics & Gynecology
PROC: 0UT70ZZ Resection of Bilateral Fallopian Tubes, Open Approach (ICD-10-PCS; 2022-09-18)
PROC: 10D00Z1 Extraction of Products of Conception, Low, Open Approach (ICD-10-PCS; principal; 2022-09-18 07:30)
DX: O34.211 Maternal care for low transverse scar from previous cesarean delivery (principal); Z37.0 Single live birth; Z30.2 Encounter for sterilization; Z3A.38 38 weeks gestation of pregnancy

== ENCOUNTER → 2022-11-09 | Outpatient (REF) | payer OTHER ==
[~2022-11-09] MED LIST changes: +COLA100C5 PO; +IBUP-1022 PO; +OXYC-517 PO
== END ==
LOC: M LAB REF 16:09
PROVIDERS: ATTEND Physician Assistant
DX: B34.9 Viral infection, unspecified (principal)

== ENCOUNTER → 2023-02-13 | Outpatient (REF) | payer OTHER ==
[2023-02-13 18:08] LABS: BASO % 0.5 % (0.0-1.0); EOS # 0.1 10^3/uL (0.0-0.5); EOS % 1.6 % (0.0-3.0); HEMATOCRIT 32.9 % (36.0-47.0); HEMOGLOBIN 9.6 g/dl (12.0-15.5); LYMPH % 31.9 % (24.0-44.0); MEAN CORPUSCULAR HEMOGLOBIN 20.7 pg (27.0-33.0); MEAN CORPUSCULAR HGB CONC 29.2 g/dl (32.0-36.5); MEAN CORPUSCULAR VOLUME 71.1 fl (80.0-96.0); MONO # 0.6 10^3/uL (0.0-0.8); MONO % 9.3 % (2.0-8.0); NEUTROPHILS # 3.5 10^3/uL (1.5-8.5); NEUTROPHILS % 56.4 % (36.0-66.0); PLATELET COUNT, AUTOMATED 340 10^3/uL (150-450); RED BLOOD COUNT 4.63 10^6/uL (4.00-5.40); WHITE BLOOD COUNT 6.2 10^3/uL (4.0-10.0)
[2023-02-13 18:19] LABS: VITAMIN B12 LEVEL 492 PG/ML (211-911)
[2023-02-13 18:21] LABS: FREE T4 1.09 NG/DL (0.89-1.76)
[2023-02-13 18:22] LABS: THYROID STIMULATING HORMONE 0.875 uIU/ML (0.55-4.78)
[2023-02-13 18:24] LABS: ALBUMIN 3.9 G/DL (3.2-5.2); ALKALINE PHOSPHATASE 71 U/L (46-116); ALT/SGPT 20 U/L (7.0-40); AST/SGOT 16 U/L (<34); BILIRUBIN,TOTAL 1.1 MG/DL (0.3-1.2); BLOOD UREA NITROGEN 10 MG/DL (9-23); CARBON DIOXIDE LEVEL 26 MMOL/L (20-31); CHLORIDE LEVEL 106 MMOL/L (98-107); GLOMERULAR FILTRATION RATE > 60.0 (>60); GLUCOSE, FASTING 95 MG/DL (60-100); IRON (FE) 11 UG/DL (50-170); PERCENT SATURATION 2.8 % (13.2-45.0); SODIUM LEVEL 138 MMOL/L (136-145); TOTAL IRON BINDING CAPACITY 386 UG/DL (250-425); TOTAL PROTEIN 7.5 G/DL (5.7-8.2)
== END ==
LOC: M SFHCCLAY 10:44
PROVIDERS: ATTEND Nurse Practitioner Family
DX: R53.83 Other fatigue (principal); J06.9 Acute upper respiratory infection, unspecified; J30.89 Other allergic rhinitis

== ENCOUNTER → 2023-05-16 | Outpatient (REF) | payer OTHER ==
[2023-05-17 01:55] LABS: CHLAMYDIA DNA AMPLIFICATION NEGATIVE (NEGATIVE); GC DNA AMPLIFICATION NEGATIVE (NEGATIVE)
== END ==
LOC: M LAB REF 22:42
PROVIDERS: ATTEND Student in an Organized Health Care Education/Training Program
DX: R30.0 Dysuria (principal)

== ENCOUNTER → 2024-04-30 | Outpatient (REF) | payer OTHER ==
[2024-04-30 21:47] LABS: Trichomonas vaginalis (AMP) NOT DETECTED (NEGATIVE)
[2024-04-30 22:11] LABS: GC DNA AMPLIFICATION NEGATIVE (NEGATIVE)
== END ==
LOC: M LAB REF 19:28 → M WUC 19:28
PROVIDERS: ATTEND Student in an Organized Health Care Education/Training Program
DX: N76.0 Acute vaginitis (principal)

== ENCOUNTER → 2024-11-05 | Outpatient (CLI) | payer OTHER ==
[~2024-11-05] MED LIST changes: -FLOM0.4C39 PO; +TAMS-18 PO
== END ==
LOC: M RAD 15:39
PROVIDERS: ATTEND Nurse Practitioner Family
DX: N92.0 Excessive and frequent menstruation with regular cycle (principal)

== ENCOUNTER → 2024-11-19 | Outpatient (REF) | payer OTHER ==
[2024-11-19 12:50] LABS: AMORPHOUS SEDIMENT SMALL (NEGATIVE); APPEARANCE, URINE CLOUDY (CLEAR); BACTERIA, URINE AUTO 1+ (NEGATIVE); BILIRUBIN, URINE AUTO NEGATIVE (NEGATIVE); BLOOD, URINE BLOOD NEGATIVE (NEGATIVE); GLUCOSE, URINE (UA) AUTO NEGATIVE (NEGATIVE); KETONE, URINE AUTO NEGATIVE (NEGATIVE); LEUKOCYTE ESTERASE, URINE AUTO NEGATIVE (NEGATIVE); MUCUS, URINE SMALL (NEGATIVE); NITRITE, URINE AUTO NEGATIVE (NEGATIVE); PROTEIN, URINE AUTO NEGATIVE (NEGATIVE); RBC, URINE AUTO 0 /HPF (0-3); SPECIFIC GRAVITY URINE AUTO 1.015 (1.002-1.035); SQUAMOUS EPITHELIAL CELL UR AU 1 /HPF (0-6); UROBILINOGEN, URINE AUTO 0.2 mg/dL (0.0-2.0); WBC, URINE AUTO 1 /HPF (0-3)
== END ==
LOC: M SFHCCLAY 09:56
PROVIDERS: ATTEND Nurse Practitioner Family
DX: N39.0 Urinary tract infection, site not specified (principal)